=== PATIENT | male | born 1995 | race Caucasian/White ===

== ENCOUNTER 2018-04-16 07:45 | Emergency (ER) | payer OTHER ==
[2018-04-16 07:57] VITALS: BP 157/84
[2018-04-16] MEDS ORDERED: DEXAMETHASONE 10 MG/ML VIAL PO STA (08:18)
--- NOTE | 2018-04-16 08:20 | ED Physician Documentation ---
PD HPI SKIN - Stated complaint Stated Complaint: UNDERARM RASH - Chief complaint Chief Complaint: General - History obtained from History obtained from: Patient - History of Present Illness Timing - onset: How many days ago (4) Timing - duration: Days (4) Timing - details: Gradual onset, Still present Location: Other (under arm) Quality / character: Itchy, Painful, Burning, Discolored Worsened by (comment): COMMENT (application of underarm deodorant) Contributing factors: Exposed to soap / lotion Similar symptoms before: Has not had sx before Recently seen: Not recently seen - Additional information Additional information: 22-year-old male has been using old spice underarm deodorant stick beginning 6 days ago and he has developed erythema and burning under his armpits. This is been bad enough that it is difficult for him to even lift his arms secondary to the pain associated with the burning under his arms. He is gone home he is showered and despite that he continues to have pain and burning under his arms. Review of Systems Constitutional: denies: Fever Eyes: denies: Decreased vision Nose: denies: Congestion Respiratory: denies: Cough GI: denies: Vomiting Skin: reports: Rash Musculoskeletal: reports: Extremity pain. denies: Neck pain, Back pain PD PAST MEDICAL HISTORY - Past Medical History Past Medical History: No - Present Medications Home Medications: Ambulatory Orders Medication Instructions Recorded Confirmed No Known Home Medications 04/16/18 04/16/18 - Allergies Allergies/Adverse Reactions: Allergies Allergy/AdvReac Type Severity Reaction Status Date / Time No Known Drug Allergies Allergy Verified 04/16/18 07:57 - Social History Does the pt smoke?: No Smoking Status: Never smoker Does the pt drink ETOH?: No Does the pt have substance abuse?: No PD ED PE NORMAL - Vitals Vital signs reviewed: Yes (tachy and hypertensive ) - General General: Alert and oriented X 3, No acute distress, Well developed/nourished - HEENT HEENT: Atraumatic, PERRL, EOMI - Respiratory Respiratory: No respiratory distress - Derm Derm: Normal color, Warm and dry, Other (under each arm in the axilla the skin is erythematous swollen and there is weeping on the right. distal n/v is intact. 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 He is administered dexamethasone 10 mg orally here and instructed to use hydrocortisone cream twice daily after showering. Departure - Departure Disposition: 01 Home, Self Care Clinical Impression: Contact dermatitis Qualifiers: Contact dermatitis type: irritant Contact dermatitis trigger: other trigger Qualified Code(s): L24.89 - Irritant contact dermatitis due to other agents; L24.8 - Irritant contact dermatitis due to other agents Condition: Stable Instructions: ED Dermatitis Contact Follow-Up: GRZEGORZ Tariq [Provider Group] Comments: Obtain hydrocortisone 1% available [id number] and apply it twice per day after showering.
== END 2018-04-16 08:30 | disposition home or self-care (01) ==
LOC: ED 07:45
DX: L25.8 Unspecified contact dermatitis due to other agents (principal)
CPT/HCPCS: 99282